=== PATIENT | male | born 1985 | race Caucasian/White ===

== ENCOUNTER 2017-12-16 12:19 | Emergency (ER) | payer OTHER, BC ==
--- NOTE | 2017-12-16 12:52 | ER Document Report ---
ED Medical Screen (RME) - General Chief Complaint: Numbness of Arm Stated Complaint: NECK/BACK PAIN Time Seen by Provider: 12/16/17 12:51 Mode of Arrival: Ambulatory Information source: Patient - HPI Patient complains to provider of: neck pain Onset: Other - pt. with several day h/o neck pain and numbness down R arm Physical Exam - Vital signs Vitals: Temp Pulse Resp BP Pulse Ox 98.7 F 83 20 112/75 100 12/16/17 12:38 12/16/17 12:38 12/16/17 12:38 12/16/17 12:38 12/16/17 12:38 Course - Vital Signs Vital signs: Temp Pulse Resp BP Pulse Ox 98.7 F 83 20 112/75 100 12/16/17 12:38 12/16/17 12:38 12/16/17 12:38 12/16/17 12:38 12/16/17 12:38 Doctor's Discharge - Discharge Referrals: SHARYN GUTIERREZ MD [Primary Care Provider] - Follow up as needed
--- NOTE | 2017-12-16 13:26 | RADIOLOGY REPORT (SQ) ---
EXAM DESCRIPTION: CT CERVICAL SPINE WITHOUT COMPLETED DATE/TIME: 12/16/2017 1:13 pm REASON FOR STUDY: neck pain with radiculitis COMPARISON: None. TECHNIQUE: Axial images acquired through the cervical spine without intravenous contrast. Images re viewed with lung, soft tissue and bone windows. Reconstructed coronal and sagittal MPR images review ed. Images stored on PACS. All CT scanners at this facility use dose modulation, iterative reconstruction, and/or weight based d osing when appropriate to reduce radiation dose to as low as reasonably achievable (ALARA). [facility]: Dose Right [facility]: CareDose [facility]: Dose Right [facility]: Teradose 4D [facility]: [facility] RADIATION DOSE: CT Rad equipment meets quality standard of care and radiation dose reduction techniq ues were employed. CTDIvol: 20.5 mGy. DLP: 415 mGy-cm. mGy. LIMITATIONS: None. FINDINGS: ALIGNMENT: Anatomic. MINERALIZATION: Normal. VERTEBRAL BODIES: No fractures or dislocation. DISCS: No significant disc disease. FACETS, LATERAL MASSES, POSTERIOR ELEMENTS: No fractures. No dislocation. No acute findings. HARDWARE: None in the spine. VISUALIZED RIBS: No fractures. LUNG APICES AND SOFT TISSUES: No significant or acute findings. OTHER: No other significant finding. IMPRESSION: NO ACUTE OR SIGNIFICANT FINDINGS IN THE CERVICAL SPINE. TECHNICAL DOCUMENTATION: JOB ID: [id number] Quality ID # [id number]: Final reports with documentation of one or more dose reduction techniques (e.g., Au tomated exposure control, adjustment of the mA and/or kV according to patient size, use of iterative reconstruction technique) 2010 [employer]- All Rights Reserved Reading location - IP/workstation name: [email or web address]
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
[2017-12-16 16:44] VITALS: BP 117/73
== END 2017-12-16 16:40 | disposition home or self-care (01) ==
LOC: ER 12:19
DX: M54.12 Radiculopathy, cervical region (principal); R20.0 Anesthesia of skin; R20.2 Paresthesia of skin; M54.2 Cervicalgia; G89.29 Other chronic pain; W40 Explosion of other materials; F17.200 Nicotine dependence, unspecified, uncomplicated
CPT/HCPCS: 72125; 99284